=== PATIENT | female | born 1945 | race Caucasian/White ===

== ENCOUNTER 2024-12-12 08:54 | Emergency (ER) | payer BC, MEDICARE ==
[2024-12-12] MEDS ORDERED: Sodium Chloride 0.9% 10 ML Syringe FLUSH PRN ×2 (08:58→09:12)
[2024-12-12 09:37] LABS: BASOPHILS ABSOLUTE AUTO 0.02 K/uL (0.00-0.20); BASOPHILS PERCENT AUTO 0.4 % (0.0-2.0); EOSINOPHILS ABSOLUTE AUTO 0.04 K/uL (0.00-0.50); EOSINOPHILS PERCENT AUTO 0.9 % (0.0-5.0); HEMATOCRIT 37.2 % (34.0-46.0); HEMOGLOBIN 12.5 g/dL (11.7-15.5); LYMPHOCYTES ABSOLUTE AUTO 1.27 K/uL (0.50-3.50); LYMPHOCYTES PERCENT AUTO 28.2 % (10.0-50.0); MEAN CORPUSCULAR HEMOGLOBIN 32.2 pg (28.2-33.3); MEAN CORPUSCULAR HGB CONC 33.6 g/dL (31.7-36.0); MEAN CORPUSCULAR VOLUME 95.9 fL (84.0-98.0); MONOCYTES ABSOLUTE AUTO 0.46 K/uL (0.00-1.00); MONOCYTES PERCENT AUTO 10.2 % (2.0-14.0); NEUTROPHILS ABSOLUTE AUTO 2.72 K/uL (1.40-7.00); NEUTROPHILS PERCENT AUTO 60.3 % (45.0-80.0); PLATELET COUNT,PLT 171 K/uL (150-350); RED BLOOD CELL COUNT 3.88 M/uL (3.77-5.09); RED CELL DISTRIBUTION WIDTH 12.5 % (11.2-14.1); WHITE BLOOD CELL COUNT,WBC 4.5 K/uL (4.0-10.2)
[2024-12-12 09:51] LABS: PROTHROMBIN TIME 10.3 SEC (9.0-11.1); PTT,PARTIAL THROMBOPLSTIN TIME 23.1 SEC (23.8-34.4)
[2024-12-12 10:03] LABS: ALANINE AMINOTRANSFERASE,ALT 22 U/L (12-78); ALBUMIN 3.7 g/dL (3.4-5.0); ALKALINE PHOSPHATASE 88 IU/L (46-116); ANION GAP 7.3 meq/L (7-15); ASPARTATE AMNIOTRANSFERASE,AST 27 U/L (15-37); BILIRUBIN TOTAL 1.1 mg/dL (0.2-1.0); BLOOD UREA NITROGEN,BUN 22 mg/dL (7-18); CALCIUM 9.2 mg/dL (8.5-10.1); CARBON DIOXIDE,CO2 28.7 mmol/L (21.0-32.0); CHLORIDE,CL 106 mmol/L (98-107); CREATININE 0.82 mg/dL (0.51-1.17); EST CRCL DRUG DOSING (CG) 46.77 mL/min; GLUCOSE RANDOM 114 mg/dL (70-99); LIPASE 22 U/L (16-77); MAGNESIUM 2.2 mg/dL (1.8-2.4); POTASSIUM,K 4.6 mmol/L (3.5-5.1); SODIUM,NA 142 mmol/L (136-145)
[2024-12-12 10:07] LABS: ESTIMATED GFR 73 mL/min (>=60)
== END 2024-12-12 16:15 | disposition home or self-care (01) ==
LOC: MERGE 08:54 → LL.ED 08:54
DX: R07.89 Other chest pain (principal); Z79.82 Long term (current) use of aspirin; Z79.899 Other long term (current) drug therapy
CPT/HCPCS: 36415; 71045; 80053; 83605; 83690; 83735; 83880; 84484; 85025; 85379; 85610; 85730; 87428-QW; 93005; 99285